=== PATIENT | female | born 1990 | race Caucasian/White ===

== ENCOUNTER 2019-04-21 17:36 | Emergency (ER) | payer SELFPAY ==
--- NOTE | ~2019-04-21 | XR_ITS ---
EXAMINATION: XR foot LT min 3V DATE: 04/21/2019 18:32 INDICATION: Left foot pain TECHNIQUE: Dorsoplantar, lateral, and 2 oblique views of the left foot were obtained. COMPARISON: None. FINDINGS: There is soft tissue swelling of the ankle. No fracture, dislocation, or subluxation is anibal ntified. The joint spaces are normal. IMPRESSION: 1. Ankle soft tissue swelling without acute osseous abnormality. 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
--- NOTE | ~2019-04-21 | XR_ITS ---
EXAMINATION: XR ankle LT min 3V DATE: 04/21/2019 18:32 INDICATION: Left ankle pain TECHNIQUE: Anteroposterior, lateral, mortise, and additional oblique view of the ankle were obtained. COMPARISON: None. FINDINGS: Ankle soft tissue swelling is present. There is no fracture, dislocation, or subluxation. IMPRESSION: 1. Ankle soft tissue swelling without acute osseous abnormality. 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
[2019-04-21 17:52] VITALS: BP 121/69; PULSE 92; RESP 16; TEMP 37.1; O2SAT 100
--- NOTE | 2019-04-21 18:20 | ED.LOWEXIN ---
HPI - Extremity Injury (Lower) General Chief Complaint: Extremity Injury, Lower Stated Complaint: swollen ankle Time Seen by Provider: 04/21/19 18:20 Source: patient and RN notes reviewed Mode of arrival: ambulatory Limitations: no limitations History of Present Illness HPI Narrative: 29-year-old female who presents to [facility] care with complaints of injury to her left ankle which occurred yesterday. Patient states that she was walking to her car and stepped into a crack causing her ankle to roll outward and fall. Patient states that he heard a pop to the left ankle foot when she fell and also abrasion to her right knee with no acute pain to knee or any other injury. Patient states pain to medial lateral and dorsal aspect of her left ankle and foot with swelling present predominantly to lateral aspect, has applied ice and taking Ibuprofen. Patient states that her pain is 9/10 described as throbbing sharp and has pressure feeling to her left ankle and foot, increase pain with movement and weight bearing. MD complaint: ankle injury Onset (ago): day(s) (1) Injury: Left: ankle Type of Injury: eversion Place: street/outdoors Severity: severe Severity scale (1-10): 9 (throbbing sharp with pressure to left ankle) Relieving factors: nothing Exacerbating factors: movement Context: fall Associated symptoms: snap/pop sensation, swelling and able to partially bear weight Other symptoms: other (abrasion right knee) Treatments prior to arrival: cold therapy and NSAIDS Related Data Home Medications Medication Instructions Recorded Confirmed No Home Medications 04/21/19 04/21/19 Allergies Allergy/AdvReac Type Severity Reaction Status Date / Time No Known Allergies Allergy Verified 04/21/19 18:06 Review of Systems Review of Systems: Narrative: CONSTITUTIONAL: Denies fever, chills, or sweats. EYES: Denies visual changes, redness, or discharge. ENT: Denies rhinorrhea, congestion, sore throat, or otalgia. CARDIOVASCULAR: Denies chest pain, palpitations, or edema. RESPIRATORY: Denies cough or dyspnea. GASTROINTESTINAL: Denies abdominal pain, nausea, vomiting, or diarrhea. GENITOURINARY: Denies dysuria or hematuria. SKIN: Denies rash or itching.abrasion right knee anterior MUSCULOSKELETAL: Denies back pain, left ankle pain and swelling, dorsal aspect of left foot, or myalgia. NEUROLOGIC: Denies headache, numbness, or weakness. PSYCHIATRIC: positive history anxiety or depression. All systems reviewed & are unremarkable except as noted in HPI and below PMFSH Past Medical History Medical History (Updated 04/27/19 @ 10:55 by Dinah Sanchez NP) Anxiety and depression Bipolar 1 disorder Kidney infection Surgical History Surgical History (Updated 04/27/19 @ 10:56 by Dinah Sanchez NP) History of appendectomy Social History Social History (Updated 04/27/19 @ 10:58 by Dinah Sanchze NP) Smoking packs per day: 0.5 Smoking cigarettes per day: 10.0 Years smoked: 8 Smoking pack-years: 4.00 Alcohol intake: current Additional occupation/education comments: works at [employer] Gender identity (if verbalized by the patient): Female Comments At time of signature, agree with nursing past medical, social history. There is no relevant family history pertinent to the presenting complaint Exam Narrative: Exam Narrative: GENERAL: Well-appearing, well-nourished, and in no acute distress. HEAD: Normocephalic, atraumatic. EYES: PERRLA and EOMI. ENT: Nares clear, no rhinorrhea or epistaxis. Mucous membranes moist. NECK: Supple. CHEST: Clear to auscultation. No respiratory distress. HEART: Regular rate and rhythm. No murmur heard. Normal peripheral pulses. ABDOMEN: Soft, nontender, nondistended, normal active bowel sounds. EXTREMITIES: Normal range of motion. No edema.Exception noted with pain and swelling to left ankle lateral region with increase pain with weight bearing and movement.strong left pedal and posterior tibi
== END 2019-04-21 19:15 | disposition home or self-care (01) ==
PROVIDERS: Emergency Provider Registered Nurse
DX: S93.402A Sprain of unspecified ligament of left ankle, initial encounter (principal); S96.912A Strain of unspecified muscle and tendon at ankle and foot level, left foot, initial encounter; X50.9XXA Other and unspecified overexertion or strenuous movements or postures, initial encounter; F17.210 Nicotine dependence, cigarettes, uncomplicated
CPT/HCPCS: 73610; 73630; 99203; G0463